=== PATIENT | female | born 1990 | race Caucasian/White ===

== ENCOUNTER 2016-11-27 19:10 | Emergency (ER) | payer OTHER ==
--- NOTE | 2016-11-27 20:43 | ED ---
Anxiety HPI - General Chief Complaint: Anxiety Stated Complaint: Lump on neck. Sent by med exp Time Seen by Provider: 11/27/16 20:26 Source: patient Mode of arrival: ambulatory - History of Present Illness Initial Comments: Patient is a 26-year-old female with history of anxiety and depression presenting with anxiety. Patient states she was left go from [employer] after a "no call, no show." Patient states on that day her boyfriend's brother was found in their house after an accident overdose. Patient states she is dealing with her boyfriend's brother's as well as losing her job. Patient states she's been out of her Zoloft and Ativan for the past 3 weeks. She is not having any withdrawal symptoms. Patient went to [facility] who told her she had a lump on her throat and directed her to the emergency room. Patient denies any fever, chills, chest pain, shortness breath, palpitations, abdominal pain, nausea, vomiting, diarrhea. Patient denies suicidal, homicidal , hallucinations. - Related Data Home Medications: Home Medications Medication Instructions Recorded Confirmed No Known Home Medications [No 11/27/16 11/27/16 Known Home Medications] Allergies/Adverse Reactions: Allergies Allergy/AdvReac Type Severity Reaction Status Date / Time No Known Allergies Allergy Verified 11/27/16 20:54 Review of Systems ROS Statement: Those systems with pertinent positive or pertinent negative responses have been documented in the HPI. Constitutional: No fever and no chills. HENT: No congestion, no rhinorrhea and no sore throat. Eyes: No discharge and no redness. Respiratory: No cough and no shortness of breath. Cardiovascular: No chest pain and no palpitations. Gastrointestinal: No nausea, no vomiting, no abdominal pain and no diarrhea. Genitourinary: No dysuria and no hematuria. Musculoskeletal: No back pain and no arthralgias. Skin: No pallor and no rash. Neurological: No dizziness and No headaches. Psych: Anxious, denies suicidality, homicidality, hallucinations. ROS Other: All systems not noted in ROS Statement are negative. Past Medical History Past Medical History: No Reported History History of Any Multi-Drug Resistant Organisms: MRSA Date of last positivie culture/infection: 2008 MDRO Source:: buttocks Past Surgical History: Appendectomy Past Anesthesia/Blood Transfusion Reactions: No Reported Reaction Past Psychological History: Anxiety, Depression Smoking Status: Never smoker Past Alcohol Use History: None Reported Past Drug Use History: None Reported General Exam - General Exam Comments Initial Comments: Constitutional: Patient appears well-developed and well-nourished. No distress. Head: Normocephalic and atraumatic. Throat: No obvious enlargement of thyroid. No nodular density. Eyes: Conjunctivae and EOM are normal. Right eye exhibits no discharge. Left eye exhibits no discharge. No scleral icterus. Neck: Normal range of motion. Neck supple. Cardiovascular: Normal rate and regular rhythm. No murmur heard. Pulmonary/Chest: Effort normal and breath sounds normal. No respiratory distress. No wheezes. Abdominal: Soft. No distension. There is no tenderness. There is no rebound and no guarding. Musculoskeletal: Normal range of motion. No edema or tenderness. Neurological: Patient alert and oriented to person, place, and time. Skin: Skin is warm and dry. Not diaphoretic. Psych: Anxious and engaging in conversation. Denies homicidality, suicidality, hallucinations. Nursing notes and vitals reviewed. Limitations: no limitations Course Vital Signs 11/27/16 11/27/16 19:46 21:28 Temperature 98.2 F 96.3 F L Pulse Rate 89 78 Respiratory 20 18 Rate Blood Pressure 141/80 120/63 O2 Sat by Pulse 98 99 Oximetry - Reevaluation(s) Reevaluation #1: 11/27/16 21:40 Patient resting comfortably in stretcher with boyfriend at the bedside. Patient feels comfortable at home. Patient remains nonsuicidal, homicidal, hallucinating. Patient reassured after listening to her life events. She does feel better after the Valium. She understands the importance of following up with primary care doctor about concern for thyroid and maintaining antidepressants/antianxiety medications. Medical Decision Making - Medical Decision Making Patient is a 26-year-old female presenting with anxiety after multiple life stressors. Patient is not homicidal, suicidal, hallucinating. Patient improved with Valium. Has been out of her Zoloft and Ativan for 3 weeks now and is outside window for any withdrawal symptoms. Patient went to urgent care and told she had a lump on her throat. I do not appreciate this. Patient can follow up with her PCP for this. Prior to discharge, patient was resting comfortably in bed. Course of stay improved. Denies pain. Discussed physical exam and diagnostic tests with patient. Questions answered and patient is agreeable to discharge with close follow up with Primary Care Physician. Instructed to return to Emergency Department if symptoms worsen. Disposition Clinical Impression: Acute anxiety Narrative: Evaluation for Lump on neck Disposition: HOME SELF-CARE Condition: Good Instructions: Generalized Anxiety Disorder (ED) Referrals: None,Stated [Primary Care Provider] - 1-2 days Kennedy Carnes MD [REFERRING] - 1-2 days
[2016-11-27] MEDS: DIAZEPAM 5 MG TAB PO STA (21:28)
[2016-11-27 21:30] VITALS: BP 120/63; PULSE 78; RESP 18; TEMP 96.3
== END 2016-11-27 21:51 | disposition home or self-care (01) ==
LOC: EC 19:10
DX: F41.9 Anxiety disorder, unspecified (principal); F32.9 Major depressive disorder, single episode, unspecified
CPT/HCPCS: 99282

== ENCOUNTER 2024-09-25 09:44 | Emergency (ER) | payer OTHER ==
[2024-09-25 09:52] VITALS: TEMP 98.1
[2024-09-25 10:50] LABS: Appearance,Urine Turbid (Clear); Color,Urine Orange; Mucus,Urine Few /hpf; RBC,Urine 180 /hpf (0-5); Squamous Epithelial Cell,Urine 198 /hpf (0-4); WBC,Urine >182 /hpf (0-5)
--- NOTE | 2024-09-25 11:01 | US ---
EXAMINATION TYPE: US OB >= 14 wk fetus DATE OF EXAM: 09/25/2024 COMPARISON: None CLINICAL INDICATION: Female, 33 years old with history of pain; Vaginal pain; no care TECHNIQUE: Transabdominal (TA) FINDINGS: GESTATIONAL AGE / DATING Physician Established: Not yet established Dates by LMP: LMP unknown Dates by First Scan: No previous this is first scan Dates by Current Scan: (14 weeks/3 days) EDC: 03/23/25 Beta HCG (if available): Not available at this time SURVEY IUP: Single PLACENTA: Anterior PREVIA: No Previa GAIL: 15.47 cm Normal CERVICAL LENGTH (transabdominal: norm > 3.0cm): 3.26 cm BIOMETRY PRESENTATION: Variable LIE: Longitudinal BPD: 2.51 cm 14 weeks / 3 days HC: 9.43 cm 14 weeks / 3 days AC: 8.13 cm 14 weeks / 4 days FL: 1.32 cm 14 weeks / 0 days ESTIMATED WEIGHT IN GRAMS: 92 grams ESTIMATED WEIGHT IN LBS/OZ: 0 lbs. 3 oz. HC/AC: 1.16 FL/AC: 16% HEART RATE: 156 bpm RHYTHM: Normal IMPRESSION: Single viable intrauterine as noted. [facility], , 09/25/2024 10:58 AM
--- NOTE | 2024-09-25 11:30 | ED ---
Abdominal Pain HPI - General Chief Complaint: Abdominal Pain Stated Complaint: Vaginal bleeding Time Seen by Provider: 09/25/24 09:53 Source: patient, RN notes reviewed Mode of arrival: ambulatory Limitations: no limitations - Related Data Previous Rx's Medication Instructions Recorded Cephalexin [Keflex] 500 mg PO Q8HR #21 cap 09/25/24 valACYclovir HCL [Valtrex] 1,000 mg PO BID #14 tablet 09/25/24 Allergies Allergy/AdvReac Type Severity Reaction Status Date / Time No Known Allergies Allergy Verified 09/25/24 09:46 Review of Systems ROS Statement: Those systems with pertinent positive or pertinent negative responses have been documented in the HPI. ROS Other: All systems not noted in ROS Statement are negative. Past Medical History Past Medical History: No Reported History History of Any Multi-Drug Resistant Organisms: MRSA Date of last positivie culture/infection: 2008 MDRO Source:: buttocks Past Surgical History: Appendectomy Past Anesthesia/Blood Transfusion Reactions: No Reported Reaction Past Psychological History: Anxiety, Depression Smoking Status: Vaper Past Alcohol Use History: None Reported Past Drug Use History: None Reported General Exam Limitations: no limitations Neck exam: Present: normal inspection. Absent: tenderness, meningismus, lymphadenopathy Respiratory exam: Present: normal lung sounds bilaterally. Absent: respiratory distress, wheezes, rales, rhonchi, stridor Cardiovascular Exam: Present: regular rate, normal rhythm, normal heart sounds. Absent: systolic murmur, diastolic murmur, rubs, gallop, clicks GI/Abdominal exam: Present: soft, normal bowel sounds. Absent: distended, tenderness, guarding, rebound, rigid External exam: Present: erythema, swelling, lesions, other (Exam performed with PRINCE Spence). Absent: normal external exam (Ulcerations erythematous based) Speculum exam: Present: other (Able to perform secondary to pain) Course Vital Signs 09/25/24 09/25/24 09:47 11:39 Temperature 98.1 F Pulse Rate 96 88 Respiratory 20 18 Rate Blood Pressure 126/84 104/68 O2 Sat by Pulse 94 L 100 Oximetry Medical Decision Making - Medical Decision Making Was pt. sent in by a medical professional or institution (, PA, AIRLINE STATION AGENT, urgent care, hospital, or longterm...) When possible be specific @ -No Did you speak to anyone other than the patient for history (EMS, parent, family, police, friend...)? What history was obtained from this source @ -No Did you review nursing and triage notes (agree or disagree)? Why? @ -I reviewed and agree with nursing and triage notes Were old charts reviewed (outside hosp., previous admission, EMS record, old EKG, old radiological studies, urgent care reports/EKG's, longterm records)? Report findings @ -No old charts were reviewed Differential Diagnosis (chest pain, altered mental status, abdominal pain women, abdominal pain men, vaginal bleeding, weakness, fever, dyspnea, syncope, headache, dizziness, GI bleed, back pain, seizure, CVA, palpatations, mental health, musculoskeletal)? @ -Differential Vaginal Bleeding: Spontaneous , threatened , molar , ectopic , bloody show, incompetent cervix, abruptioplacenta, placenta previa, uterine rupture, dysfunctional uterine bleeding, hemorrhage, uterine fibroids, this is not meant to be an all-inclusive list. EKG interpreted by me (3pts min.). @ -None X-rays interpreted by me (1pt min.). @ -None done CT interpreted by me (1pt min.). @ -None done U/S interpreted by me (1pt. min.). @ -[Ultrasound showing 14 weeks and 3 days no complicating factors normal heart rate What testing was considered but not performed or refused? (CT, X-rays, U/S, labs)? Why? @ -None What meds were considered but not given or refused? Why? @ -None Did you discuss the management of the patient with other professionals (professionals i.e. , PA, AIRLINE STATION AGENT, lab, RT, psych nurse, older adult social work specialist, customs inspector, teacher, inshore undersea warfare officer, case assistant)? Give summary @ -No Was smoking cessation discussed for >3mins.? @ -No Was critical care preformed (if so, how long)? @ -No Were there social determinants of health that impacted care today? How? (Homelessness, low income, unemployed, alcoholism, drug addiction, transportation, low edu. Level, literacy, decrease access to med. care, mcc, rehab)? @ -No Was there de-escalation of care discussed even if they declined (Discuss DNR or withdrawal of care, Hospice)? DNR status @ -No What co-morbidities impacted this encounter? (DM, HTN, Smoking, COPD, CAD, Cancer, CVA, ARF, Chemo, Hep., AIDS, mental health diagnosis, sleep apnea, morbid obesity)? @ -None Was patient admitted / discharged? Hospital course, mention meds given and route, prescriptions, significant lab abnormalities, going to OR and other pertinent info. @ -[Discharge patient has vaginal swelling, ulcerations concerning for herpes outbreak. Patient does have evidence of UTI was given Valtrex, antibiotics has a follow-up appointment in the morning with TRAIN GATE ATTENDANT. Undiagnosed new problem with uncertain prognosis? @ -No Drug Therapy requiring intensive monitoring for toxicity (Heparin, Nitro, Insulin, Cardizem)? @ -No Were any procedures done? @ -No Diagnosis/symptom? @ -Herpes, UTI, Acute, or Chronic, or Acute on Chronic? @ -Acute Uncomplicated (without systemic symptoms) or Complicated (systemic symptoms)? @ -Uncomplicated Side effects of treatment? @ -No Exacerbation, Progression, or Severe Exacerbation? @ -No Poses a threat to life or bodily function? How? (Chest pain, [place], [place], pneumonia, PE, COPD, DKA, ARF, appy, cholecystitis, CVA, Diverticulitis, Homicidal, Suicidal, threat to staff... and all critical care pts) @ -No - Lab Data Lab Results 09/25/24 Range/Units 10:30 Urine Color Yates Urine Appearance Turbid H (Clear) Urine RBC 180 H (0-5) /hpf Urine WBC >182 H (0-5) /hpf Urine WBC Clumps Many H (None) /hpf Ur Squamous Epith Cells 198 H (0-4) /hpf Urine Mucus Few H (None) /hpf Disposition Clinical Impression: UTI (urinary tract infection), Herpes simplex, Disposition: HOME SELF-CARE Condition: Stable Instructions (If sedation given, give patient instructions): Genital Herpes Simplex (ED) Additional Instructions: Please return to the Emergency Department if symptoms worsen or any other concerns. Prescriptions: Cephalexin [Keflex] 500 mg PO Q8HR #21 cap valACYclovir HCL [Valtrex] 1,000 mg PO BID #14 tablet Is patient prescribed a controlled substance at d/c from ED?: No Referrals: None,Stated [Primary Care Provider] - 1-2 days Time of Disposition: 11:30
[2024-09-25] MEDS: LIDOCAINE 4% CREAM 5 GM TUBE TOPICAL ONE (11:37)
[2024-09-25 11:40] VITALS: BP 104/68; PULSE 88; RESP 18
== END 2024-09-25 11:58 | disposition home or self-care (01) ==
LOC: EC 09:44
DX: O98.511 Other viral diseases complicating pregnancy, first trimester (principal); B00.9 Herpesviral infection, unspecified; O23.41 Unspecified infection of urinary tract in pregnancy, first trimester; N39.0 Urinary tract infection, site not specified; O99.331 Smoking (tobacco) complicating pregnancy, first trimester; F17.290 Nicotine dependence, other tobacco product, uncomplicated; Z3A.14 14 weeks gestation of pregnancy
CPT/HCPCS: 76805; 81001; 99284